=== PATIENT | male | born 1990 | race Caucasian/White ===

== ENCOUNTER 2017-09-27 18:33 | Emergency (ER) | payer SELFPAY ==
[~2017-09-27] VITALS: Ht 167.6 cm; Wt 79.4 kg
[2017-09-27 18:42] VITALS: BP 133/95
--- NOTE | 2017-09-27 18:50 | NUR ---
PT AMBULATES TO BED 2. PLACED ON PULSE OX.
--- NOTE | 2017-09-27 18:53 | NUR ---
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 DENIES FEVER. REPORTS SMOKING 6 CIGARETTES PER DAY. DENIES N/V/DIZZINESS.SKIN IS PINK/WARM/DRY; AAOX4 WITH EVEN AND STEADY GAIT; LUNGS WHEEZING BL; PT DENIES ANY FEVER OR CP AT THIS TIME; PATIENT STATES PAIN OF 0/10 AT THIS TIME; VSS; PATIENT POSITIONED FOR COMFORT; HOB ELEVATED; BEDRAILS UP X2; BED DOWN. ER MD MADE AWARE OF PT STATUS.
--- NOTE | 2017-09-27 19:05 | NUR ---
Pt report given to CHARLES RICKETTS. Transfer of care at this time.
--- NOTE | 2017-09-27 20:16 | NUR ---
Patient discharged with v/s stable. Written and verbal after care instructions given and explained DR SRIVASTAVA. Patient alert, oriented and verbalized understanding of instructions. Ambulatory with steady gait. All questions addressed prior to discharge. ID band removed. Patient advised to follow up with PMD. Rx of PROMETHAZINE AND AUGMENTIN given. Patient educated on indication of medication including possible reaction and side effects. Opportunity to ask questions provided and answered.
--- NOTE | 2017-09-27 20:16 | NUR ---
Note willam in EDM - 09/27/17 at 2017 by RAKESH Patient discharged with v/s stable. Written and verbal after care instructions given and explained. Patient alert, oriented and verbalized understanding of instructions. Ambulatory with steady gait. All questions addressed prior to discharge. ID band removed. Patient advised to follow up with PMD. Rx of PROMETHAZINE AND AUGMENTIN given. Patient educated on indication of medication including possible reaction and side effects. Opportunity to ask questions provided and answered.
[2017-09-27 20:18] VITALS: BP 132/81
== END 2017-09-27 20:16 | disposition home or self-care (01) ==
LOC: MED 18:33
DX: J20.9 Acute bronchitis, unspecified (principal)
CPT/HCPCS: 71045; 99283; Q0092